=== PATIENT | female | born 1950 | race Caucasian/White ===

== ENCOUNTER 2016-10-12 15:19 | Inpatient (IN) | payer OTHER, MEDICARE ==
[~2016-10-12] VITALS: Ht 157.5 cm; Wt 97.5 kg
--- NOTE | 2016-10-12 15:34 | ED GI/GU/ABDOMINAL COMPLAINT ---
History of Present Illness General Chief Complaint: Abdominal Pain/Flank Pain Stated Complaint: ABDOMIAL PAIN Source: patient Exam Limitations: no limitations Vital Signs & Intake/Output Vital Signs & Intake/Output Vital Signs Date Time Temp Pulse Resp B/P B/P Pulse O2 O2 Flow FiO2 Mean Ox Delivery Rate 10/12 2225 97.8 112 20 141/68 95 Room Air 10/12 2004 98.1 96 18 128/62 96 Room Air 10/12 1751 98.5 94 17 138/63 95 Room Air 10/12 1647 Room Air 10/12 1527 96.8 100 18 127/58 100 Room Air ED Intake and Output 10/13 0000 10/12 1200 Intake Total 1000 Output Total Balance 1000 Intake, IV 1000 Number 4 Bowel Movements Patient 215 lb Weight Weight Reported by Patient Measurement Method Allergies Coded Allergies: Penicillins (UNKNOWN 10/12/16) clarithromycin (From BIAXIN) (HIVES 10/12/16) Reconcile Medications Aspirin (Ecotrin*) 81 MG TABLET.DR 1 TAB PO DAILY HEART/BLOOD (Reported) Lisinopril 20 MG TABLET 1 TAB PO DAILY BP (Reported) Paroxetine HCl (Paxil) 30 MG TABLET 1 TAB PO DAILY PANIC ATTACKS (Reported) Potassium Chloride 10 MEQ TAB.ER.PRT 1 TAB PO BID SUPPLEMENT (Reported) Pravastatin Sodium (Pravachol) 40 MG TABLET 1 TAB PO DAILY CHOLESTEROL ( Reported) Triage Note: PT BIBA FROM HOME AFTER EXPERIENCING A SUDDEN ONSET OF ABDOMINAL PAIN AND DIZZINESS AFTER LUNCH. C/O EXTREME DIAPHORESIS. DENIES SYNCOPAL EPISODE. UPON ARRIVAL IN ED, PT IS A&O AND IN NAD. NO DIAPHORESIS. STATES ABDOMINAL PAIN HAS ABATED SINCE SHE HAS BURPED SEVERAL TIMES. Triage Nurses Notes Reviewed? yes ? N Is pt currently ? No Onset: Just prior to arrival Duration: minute(s): (15) Timing: no prior history Quality/Severity: cramping Severity Numbers: 7 Location: generalized abdomen Radiation: no radiation Activities at Onset: AFTER EATING Prior Abdominal Problems: none Past Sexual History: Unobtainable at this time No Modifying Factors: none HPI: Patient is a 66-year-old female presenting to the emergency department chief complaint of sudden onset lower abdominal discomfort, cramping with associated lightheadedness, dizziness and diaphoresis. Positive nausea without vomiting. Symptom lastED approximately 20 minutes and none have been slowly subsiding. Patient reports that she became very sweaty. Denies any associated or chest pain. Positive shortness of breath. No palpitations. Denies taking anything to help her symptoms. Patient reports that she felt like she was given a pass out but didn't. She ate 2 hotdogs approximately 2 hours prior to onset of symptoms. Denies any chest pain. (DEEPTHI JOHNSON) Past History Travel History Traveled to [place] past 21 day No Medical History Any Pertinent Medical History? see below for history Surgical History Surgical History: non-contributory Psychosocial History What is your primary language Lithuanian Family History Hx Contributory? No (DEEPTHI JOHNSON) Review of Systems Review of Systems Constitutional: Reports: malaise, weakness. Comments Review of systems: See HPI, All other systems negative. Constitutional, no weight loss HEENT: No visual changes no sore throat no congestion Cardiovascular: No chest pain ,palpitation Skin, no jaundice no rashes Respiratory: No cough sputum or hemoptysis GI: no vomiting : No dysuria No hematuria Muscle skeletal: no back pain, no neck pain, Neurologic: No numbness no confusion Psych: No stress anxiety Immunology: No splenectomy or history of AIDS (DEEPTHI JOHNSON) Physical Exam Physical Exam General Appearance: no apparent distress, alert, awake, comfortable Gastrointestinal: normal bowel sounds, soft, tenderness Comments: Well-developed well-nourished person in no acute distress HEENT: Normal EENT exam, extraocular motion intact, small of horizontal nystagmus. Pupils equally round and reactive to light and accommodation. Nose is atraumatic. External auditory canal and Tympanic membranes clear. Pharynx normal. No swelling or edema. Neck: Supple, no lymphadenopathy, normal range of motion without pain or tenderness Back: Nontender, no CVA tenderness. Cardiovascular: Regular rate and rhythms no murmurs rubs or gallops, normal JVP Respiratory: Chest nontender. No respiratory distress.breath sounds clear to auscultation bilaterally Abdomen: Soft, mildly tender to palpation diffusely, nondistended, no appreciable organomegaly. Normal bowel sounds. No ascites RECTAL: Nontender, positive external hemorrhoids appreciated. Brown stool guaiac negative. Extremity: No edema, no calf tenderness to palpation, normal and equal pulses. Neuro: Alert oriented x3, motor sensory normal, cranial nerves II through XII grossly intact. Cerebellar testing is unremarkable. Abdomen perform finger to nose testing without difficulty. Skin: No appreciable rash on exposed skin, skin is warm and diaphoretic. Old surgical scar noted over the anterior aspect of the chest, no surrounding erythema or edema. Nontender to palpation. Psych: Mood and affect is normal, memory and judgment is normal. Core Measures ACS in differential dx? Yes Severe Sepsis Present: No Septic Shock Present: No (INES ZAMORA,DEEPTHI) Progress Differential Diagnosis: AAA, AMI, appendicitis, cholecystitis, diverticulitis, ischemic bowel Plan of Care: Orders Procedure Date/time Status Nothing by Mouth 10/13 B Active LIPID PANEL 10/13 07 Active CBC WITHOUT DIFFERENTIAL 10/13 07 Active BASIC ELECTROLYTES PLUS BUN&CR 10/13 0700 Active TROPONIN LEVEL 10/13 0200 Active EKG 10/13 0200 Active Heart Healthy Diet 10/12 D Complete CULTURE,STOOL 10/12 2340 Active Pathway - chart 10/12 2329 Active Patient Data 10/12 2329 Active Code Status 10/12 2329 Active Patient Data 10/12 2239 Active PARTIAL THROMBOPLASTIN TIME 10/12 2239 Complete OXYGEN SETUP (GEN) 10/12 2223 Active Saline Lock 10/12 2223 Active Admit to inpatient 10/12 2223 Active Vital Signs 10/12 2223 Active Activity/Ambulation 10/12 2223 Active Code Status 10/12 2223 Complete TROPONIN LEVEL 10/12 2100 Complete EKG 10/12 2100 Active Add-on Test (ER Only) 10/12 1922 Active Intake & Output 10/12 1915 Active THYROID STIMULATING HORMONE 10/12 1700 Complete TOTAL TRIODOTHYROXINE 10/12 1700 Complete THYROXINE 10/12 1700 Complete MISTAKE 10/12 1535 Active Telemetry/Setter [employer] 10/12 1535 Active TROPONIN LEVEL 10/12 1535 Complete COMPREHENSIVE METABOLIC PANEL 10/12 1535 Complete CBC WITHOUT DIFFERENTIAL 10/12 1535 Complete EKG 10/12 1535 Active Pathway - chart 10/12 UNK Active House Staff 10/12 UNK Active VTE Mechanical Prophylaxis 10/12 UNK Active CASE MANAGEMENT CONSULT 10/12 UNK Active ECHOCARDIOGRAM 10/12 UNK Active Current Medications Sig/Kelly Start time Last Medication Dose Stop Time Status Admin Pravastatin Sodium 40 MG QPM 10/13 2200 UNVr (Pravachol) Aspirin Buffered 81 MG DAILY 10/13 1000 UNVr (Ecotrin) Lisinopril 20 MG DAILY 10/13 1000 UNVr (Prinivil) Multivitamins 1 TAB DAILY 10/13 1000 CANr (Theragran Vitamins) Potassium Chloride 10 MEQ DAILY 10/13 1000 UNVr (K-Dur) Sodium Chloride 1,000 ML Q13H 10/12 2344 UNVr (Normal Saline 0.9%) Trimethobenzamide HCl 200 MG 4 TIMES/DAY PRN 10/12 2344 UNVr (Tigan) Acetaminophen 650 MG Q6P PRN 10/12 2329 UNVr (Tylenol) Paroxetine HCl 30 MG QPM 10/12 2329 UNVr (Paxil) Heparin Sodium 25,000 UNIT Q24H 10/12 2229 AC 10/12 (Porcine) 2325 (Heparin) Sodium Chloride 500 ML Laboratory Tests 10/12/165: APTT 27 10/12/165: Troponin I 0.34 *H 10/12/16 1700: Anion Gap 12, Estimated GFR > 60, BUN/Creatinine Ratio 23.8, Glucose 114 H, Calcium 9.9, Total Bilirubin 0.6, AST 26, ALT 32, Alkaline Phosphatase 119, Troponin I 0.07, Total Protein 7.5, Albumin 4.4, Globulin 3.1, Albumin/Globulin Ratio 1.4, TSH 0.573, Thyroxine (T4) 10.2, Total T3 1.71 H, CBC w Diff NO MAN DIFF REQ, RBC 4.60, MCV 91.3, MCH 30.4, RDW 13.2, MPV 8.3, Gran % 86.2 H, Lymphocytes % 7.3 L, Monocytes % 5.0, Eosinophils % 0.6, Basophils % 0.9, Absolute Granulocytes 15.1 H, Absolute Lymphocytes 1.3, Absolute Monocytes 0.9 H, Absolute Eosinophils 0.1, Absolute Basophils 0.2, PUBS MCHC 33.3 Microbiology 10/13 2339 STOOL: Stool Culture - ORD Diagnostic Imaging: Viewed by Me: Radiology Read. Discussed w/RAD: Radiology Read. Radiology Impression: XR CHEST CLINICAL INFORMATION: Shortness of breath. Concern for cardiomegaly. COMPARISON: Chest x-ray 12/14/2005 TECHNIQUE: 2 views of the chest were obtained. FINDINGS: Status post median sternotomy, status post aortic valve replacement. Heart size is normal. The trachea is displaced to the right of midline possibly due to an enlarged substernal thyroid. This is similar to the chest x-ray of 12/14/2005. No pulmonary vascular congestion. Small linear scar or subsegmental atelectasis in left midlung. Lungs are otherwise clear. No pleural effusion or pneumothorax. IMPRESSION: 1. Heart size is normal. Status post cardiac valve replacement. No pulmonary vascular congestion. 2. Trachea displaced to the right of midline likely from substernal enlarged thyroid. This can be further assessed with thyroid ultrasound. DICTATED BY: JOLYNN ALVAREZ MD DATE/TIME DICTATED:10/12/161557 ART EDUCATION PROFESSOR:YANCY DATE/TIME TRANSCRIBED:10/12/161557, PATIENT: FRANSISCO ROBLES PRESENT AGE: 66 PATIENT ACCOUNT NO: [id number] : 49 LOCATION: [facility] ORDERING PHYSICIAN: DEEPTHI ZAMORA SERVICE DATE: 10/12/16 EXAM TYPE: CAT - CT ABD & PELVIS ANGIOGRAM; CTA CHEST-AORTIC DISSECTION EXAMINATION: CT ANGIOGRAM CHEST, ABDOMEN AND PELVIS CLINICAL INFORMATION: Abdominal pain. Diaphoresis. COMPARISON: CT chest 12/16/2005. Chest x-ray 10/12/2016 TECHNIQUE: Noncontrast axial images obtained through the chest. Multiple axial images were obtained through the chest abdomen and pelvis following the administration of 120 mL of Optiray 350 intravenous contrast. Coronal and sagittal reformatted images performed at CT scanner. No 3-D imaging. DLP: 1668.95 mGy-cm. FINDINGS: VASCULAR: There is no acute abnormality of the thoracic or abdominal aorta. There is no dissection. There is no aneurysm of thoracic aorta. 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 There is diffuse atherosclerotic vascular wall calcifications of the thoracic and abdominal aorta as well as major branch vessels of aorta. There is enhancement of the major branch vessels at the thoracic aortic arch as well as in the abdomen and pelvis. The pulmonary arteries are well opacified. No evidence of central pulmonary embolism. Status post median sternotomy. Status post aortic valve replacement. CT CHEST: MEDIASTINUM: There is a large left-sided substernal thyroid displacing the trachea to the right. This contains some calcification. This is not fully imaged. This could be further assessed with nonemergent thyroid ultrasound. LUNGS: The lungs are clear. No nodule or infiltrate. Central bronchial airways open. FLUID: There is no pericardial effusion. There is no pleural effusion. AXILLA: No significant lymphadenopathy. CT SCAN ABDOMEN PELVIS: LIVER, GALLBLADDER, AND BILIARY TREE: The liver is normal in size, shape, and attenuation. No focal hepatic lesion or biliary ductal dilatation is present. Right lobe of liver measures 19 cm superior inferior. The gallbladder is unremarkable with no evidence of radiopaque gallstones, gallbladder wall thickening, or obvious pericholecystic inflammatory changes. PANCREAS: Unremarkable. SPLEEN: Unremarkable. ADRENAL GLANDS: Unremarkable. KIDNEYS AND URETERS: The kidneys are normal in size, shape, and attenuation. No hydronephrosis, hydroureter, or calculi seen. No perinephric stranding. BLADDER: Unremarkable. GASTROINTESTINAL TRACT: No acute change of bowel. No bowel obstruction. No bowel wall thickening or edema. Large volume of stool in the rectum sigmoid with scattered stool throughout the remainder of colon. The appendix is normal. Small bowel loops unremarkable. ABDOMINAL WALL: No significant hernia is appreciated. LYMPH NODES: Normal. PELVIC VISCERA: The uterus is anteverted. No adnexal abnormality. OSSEOUS STRUCTURES: Multilevel degenerative change of the spine with disc height narrowing and endplate spurs facet joint arthrosis. Vacuum disc phenomena of the lower 3 lumbar disc spaces. IMPRESSION: 1. No aneurysm or dissection of aorta. There is atherosclerotic vascular calcifications of the aorta and major branch vessels of aorta. 2. Large left-sided substernal thyroid goiter. 3. Status post median sternotomy with aortic valve replacement. 4. No acute abnormality of the abdomen or pelvis. DICTATED BY: JOLYNN ALVAREZ MD DATE/TIME DICTATED:10/12/161903 ART EDUCATION PROFESSOR :YANCY DATE/TIME TRANSCRIBED:10/12/161903 CONFIDENTIAL, DO NOT COPY WITHOUT APPROPRIATE AUTHORIZATION. <Electronically signed in Other Vendor System> SIGNED BY: JOLYNN ALVAREZ MD 10/12/161917 Initial ED EKG: SINUS 93 BPM, PROLONGED QT, R WAVE PROGRESSION Repeat EKG: unchanged Comments: On arrival patient nauseous, diaphoretic. IV fluids initiated along with Zofran. EKG shows prolonged QT interval, Zofran given prior to EEG. We will continue to monitor her on the groundwater monitoring technician. Patient feeling much improved after IV hydration. Patient reports that she has had diarrhea throughout emergency department stay. Still has mild cramping in her abdomen that has improved. No more nausea or vomiting. No more diaphoresis. 10/12/2016 8:24:[address] PM patient informed of CT and imaging results. Resting comfortably. Pending repeat EKG and troponin. 10/12/2016 10:33:[address] Salcedo, patient will be admitted under his service for elevated troponin, and STEMI. IV heparin and initiated along with by mouth aspirin. (DEEPTHI JOHNSON) Departure Departure Time of Disposition: 2218 Disposition: STILL A PATIENT Condition: Stable Clinical Impression Primary Impression: NSTEMI (non-ST elevated myocardial infarction) Referrals: JILLIAN CHANDLER APRN (PCP/Family) Departure Forms: Customer Survey General Discharge Information Admission Note Spoke With: YASMIN SALCEDO MD Documentation of Exam: Documentation of any treatments & extenuating circumstances including Concerns Regarding Discharge (functional status, medication knowledge or non-compliance, living conditions, etc.) that warrant an admission rather than observation: Patient requiring IV heparinization for elevated troponin, trending EKGs and troponins, cardiology consultation, medication management, stress tests, echocardiogram. Discharged at this time would be medically HARMFUL. (DEEPTHI JOHNSON) PA/AIRCRAFT AIR CONDITIONING MECHANIC Co-Sign Statement Statement: ED Attending supervision documentation- x I saw and evaluated the patient. I have also reviewed all the pertinent lab results and diagnostic results. I agree with the findings and the plan of care as documented in the PA's/AIRCRAFT AIR CONDITIONING MECHANIC's documentation. [] I have reviewed the ED Record and agree with the PA's/AIRCRAFT AIR CONDITIONING MECHANIC's documentation. [] Additions or exceptions (if any) to the PAs/AIRCRAFT AIR CONDITIONING MECHANIC's note and plan are summarized below: [] (MARTINA RAJAN MD) Critical Care Note Critical Care Note Critical Care Time: 30-74 min (DEEPTHI JOHNSON)
--- NOTE | 2016-10-12 16:05 | RADIOLOGY REPORT ---
EXAMINATION: XR CHEST CLINICAL INFORMATION: Shortness of breath. Concern for cardiomegaly. COMPARISON: Chest x-ray 12/14/2005 TECHNIQUE: 2 views of the chest were obtained. FINDINGS: Status post median sternotomy, status post aortic valve replacement. Heart size is normal. The trachea is displaced to the right of midline possibly due to an enlarged substernal thyroid. This is similar to the chest x-ray of 12/14/2005. No pulmonary vascular congestion. Small linear scar or subsegmental atelectasis in left midlung. Lungs are otherwise clear. No pleural effusion or pneumothorax. IMPRESSION: 1. Heart size is normal. Status post cardiac valve replacement. No pulmonary vascular congestion. 2. Trachea displaced to the right of midline likely from substernal enlarged thyroid. This can be further assessed with thyroid ultrasound.
[2016-10-12] MEDS ORDERED: ASPIRIN EC81 M1 PO (16:56)
[2016-10-12] MEDS ORDERED: POTASSIUM CHLO10 ME5 PO (16:56)
[2016-10-12] MEDS ORDERED: PAXIL30 M1 PO (16:56)
[2016-10-12] MEDS ORDERED: LISINOPRIL10 M1 PO (16:56)
[2016-10-12] MEDS ORDERED: PRAVACHOL40 M1 PO (16:57)
[2016-10-12] MEDS ORDERED: LISINOPRIL20 M1 PO (16:59)
[2016-10-12 17:19] LABS: ABSOLUTE BASOPHIL COUNT 0.2 /CUMM (0.0-0.2); ABSOLUTE EOSINOPHIL COUNT 0.1 /CUMM (0.0-0.7); ABSOLUTE GRANULOCYTE CT 15.1 /CUMM (1.4-6.5); ABSOLUTE LYMPH COUNT 1.3 /CUMM (1.2-3.4); ABSOLUTE MONOCYTE COUNT 0.9 /CUMM (0.10-0.60); BASOPHIL % 0.9 % (0.0-2.0); EOSINOPHIL % 0.6 % (0-5); MEAN CORPUSCULAR HGB 30.4 PG (27.0-31.0); MEAN CORPUSCULAR HGB CONC 33.3 G/DL (33.0-37.0); MEAN CORPUSCULAR VOLUME 91.3 FL (81.0-99.0); MEAN PLATELET VOLUME 8.3 FL (7.4-10.4); PLATELET COUNT 262 /CUMM (130-400); RBC DISTRIBUTION WIDTH 13.2 % (11.5-14.5); WHITE BLOOD CELL COUNT 17.6 /CUMM (4.8-10.8)
[2016-10-12 17:21] LABS: GRANULOCYTE % 86.2 % (42.2-75.2)
--- NOTE | 2016-10-12 19:18 | CT SCAN REPORT ---
EXAMINATION: CT ANGIOGRAM CHEST, ABDOMEN AND PELVIS CLINICAL INFORMATION: Abdominal pain. Diaphoresis. COMPARISON: CT chest 12/16/2005. Chest x-ray 10/12/2016 TECHNIQUE: Noncontrast axial images obtained through the chest. Multiple axial images were obtained through the chest abdomen and pelvis following the administration of 120 mL of Optiray 350 intravenous contrast. Coronal and sagittal reformatted images performed at CT scanner. No 3-D imaging. DLP: 1668.95 mGy-cm. FINDINGS: VASCULAR: There is no acute abnormality of the thoracic or abdominal aorta. There is no dissection. There is no aneurysm of thoracic aorta. 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 There is diffuse atherosclerotic vascular wall calcifications of the thoracic and abdominal aorta as well as major branch vessels of aorta. There is enhancement of the major branch vessels at the thoracic aortic arch as well as in the abdomen and pelvis. The pulmonary arteries are well opacified. No evidence of central pulmonary embolism. Status post median sternotomy. Status post aortic valve replacement. CT CHEST: MEDIASTINUM: There is a large left-sided substernal thyroid displacing the trachea to the right. This contains some calcification. This is not fully imaged. This could be further assessed with nonemergent thyroid ultrasound. LUNGS: The lungs are clear. No nodule or infiltrate. Central bronchial airways open. FLUID: There is no pericardial effusion. There is no pleural effusion. AXILLA: No significant lymphadenopathy. CT SCAN ABDOMEN PELVIS: LIVER, GALLBLADDER, AND BILIARY TREE: The liver is normal in size, shape, and attenuation. No focal hepatic lesion or biliary ductal dilatation is present. Right lobe of liver measures 19 cm superior inferior. The gallbladder is unremarkable with no evidence of radiopaque gallstones, gallbladder wall thickening, or obvious pericholecystic inflammatory changes. PANCREAS: Unremarkable. SPLEEN: Unremarkable. ADRENAL GLANDS: Unremarkable. KIDNEYS AND URETERS: The kidneys are normal in size, shape, and attenuation. No hydronephrosis, hydroureter, or calculi seen. No perinephric stranding. BLADDER: Unremarkable. GASTROINTESTINAL TRACT: No acute change of bowel. No bowel obstruction. No bowel wall thickening or edema. Large volume of stool in the rectum sigmoid with scattered stool throughout the remainder of colon. The appendix is normal. Small bowel loops unremarkable. ABDOMINAL WALL: No significant hernia is appreciated. LYMPH NODES: Normal. PELVIC VISCERA: The uterus is anteverted. No adnexal abnormality. OSSEOUS STRUCTURES: Multilevel degenerative change of the spine with disc height narrowing and endplate spurs facet joint arthrosis. Vacuum disc phenomena of the lower 3 lumbar disc spaces. IMPRESSION: 1. No aneurysm or dissection of aorta. There is atherosclerotic vascular calcifications of the aorta and major branch vessels of aorta. 2. Large left-sided substernal thyroid goiter. 3. Status post median sternotomy with aortic valve replacement. 4. No acute abnormality of the abdomen or pelvis.
[2016-10-12 23:11] LABS: PTT 27 SEC (25-37)
--- NOTE | 2016-10-12 23:49 | History & Physical ---
[facility] 10/12/16 2333: General Information and HPI MD Statement: I have seen and personally examined FRANSISCO ROBLES and documented this H&P. The patient is a 66 year old F who presented with a patient stated chief complaint of , nausea,abdominal cramps associated with diarrhea. []. History of Present Illness: 66 YO F ex smoker( 1 pack/d quit 1 yr back) with PMH of HTN, hyperlipidemia, anxiety, status post valve replacement with bovine valve( October 2015 in [place] ) and benign thyroid tumor presented with CC of nausea, abdominal cramps associated with diarrhea, sweating and light headedness. According to the patient she was all right untill she ate hot dogs in her lunch at home and after that she had crampy pain, 3/10, in her lower belly, non radiating, no aggravating factor but relieved a bit after passing watery stool, non bloody, non foul smelling and after every two hours. She also reported that along with diarrhea she is feling nauseaous, sweat a lot and was feeling light headed. She denied typical chest pain, palpitation, dyspnea, fever, vomiting, tick bite, chills, ill contact, constipation, recent travel and headache. In ED she received zofran and IV N/S. They sent all the labs along with troponin. The first set of troponin was negative but second one was 0.34 with no EKG changes. C xray:1. Heart size is normal. Status post cardiac valve replacement. No pulmonary vascular congestion. 2. Trachea displaced to the right of midline likely from substernal enlarged thyroid. This can be further assessed with thyroid ultrasound. CTA chest:No aneurysm or dissection of aorta. There is atherosclerotic vascular calcifications of the aorta and major branch vessels of aorta. 2. Large left-sided substernal thyroid goiter. CTA abd and pelvis:No acute abnormality of the abdomen or pelvis. On admission vital signs were stable. Examination: HEENT Atraumatic, PERRLA, EOMI Cardiovascular Regular Rate, Lungs Clear to Auscultation, Normal Air Movement Abdomen Normal Bowel Sounds, Soft, No Tenderness, No Hepatospenomegaly, No Masses Neurological Normal Gait, Normal Speech, Strength at 5/5 X4 Ext, Sensation Intact. Pedal edema grade 1 EKG tachcardia, no ST segment changes ASSESSMENT: ABDOMINAL PAIN AND DIARRHEA D/D: viral gastroenteritis, bacterial diarrhea, giardiasis, traveler's diarrhea, IBS, Stool culture IV hydration zofran check cbc BEP NSTEMI elevated troponin level Troponin and EKG X 3 continue aspirin 81mg IV heparin NPO Continue lisinopril, statin Echo Lipid panel Allergies/Medications Allergies: Coded Allergies: Penicillins (UNKNOWN 10/12/16) clarithromycin (From BIAXIN) (HIVES 10/12/16) Home Med list Aspirin (Ecotrin*) 81 MG TABLET.DR 1 TAB PO DAILY HEART/BLOOD (Reported) Lisinopril 20 MG TABLET 1 TAB PO DAILY BP (Reported) Paroxetine HCl (Paxil) 30 MG TABLET 1 TAB PO DAILY PANIC ATTACKS (Reported) Potassium Chloride 10 MEQ TAB.ER.PRT 1 TAB PO BID SUPPLEMENT (Reported) Pravastatin Sodium (Pravachol) 40 MG TABLET 1 TAB PO DAILY CHOLESTEROL ( Reported) Past History Travel History Traveled to [place] past 21 day No Medical History Cardiovascular: hypertension, hyperlipidemia, CARDIAC CATH Psychiatric: anxiety Surgical History Surgical History: non-contributory Past Family/Social History Sexual History Past Sexual History Unobtainable at this time Review of Systems Review of Systems Constitutional: Reports: no symptoms. EENTM: Reports: no symptoms. Cardiovascular: Reports: peripheral edema. Respiratory: Reports: no symptoms. GI: Reports: diarrhea, nausea. Genitourinary: Reports: no symptoms. Musculoskeletal: Reports: no symptoms. Skin: Reports: no symptoms. Neurological/Psychological: Reports: no symptoms. Hematologic/Endocrine: Reports: no symptoms. Exam & Diagnostic Data Last 24 Hrs of Vital Signs/I&O Vital Signs Date Time Temp Pulse Resp B/P B/P Pulse O2 O2 Flow FiO2 Mean Ox Delivery Rate 10/125 97.8 112 20 141/68 95 Room Air 10/12 2004 98.1 96 18 128/62 96 Room Air 10/12 1751 98.5 94 17 138/63 95 Room Air 10/12 1647 Room Air 10/12 1527 96.8 100 18 127/58 100 Room Air Intake & Output 10/12 1600 10/12 0800 10/12 0000 Intake Total Output Total Balance Patient 215 lb Weight Weight Reported by Patient Measurement Method Physical Exam General Appearance Alert, Oriented X3, Cooperative, No Acute Distress Skin No Rashes Skin Temp/Moisture Exam: Warm/Dry HEENT Atraumatic, PERRLA, EOMI Neck Supple Cardiovascular Regular Rate Lungs Clear to Auscultation Abdomen Normal Bowel Sounds Neurological Normal Speech Vascular Normal Pulses Assessment/Plan Assessment: ASSESSMENT: ABDOMINAL PAIN AND DIARRHEA D/D: viral gastroenteritis, bacterial diarrhea, giardiasis, traveler's diarrhea, IBS, Stool culture IV hydration zofran check cbc BEP NSTEMI elevated troponin level Troponin and EKG X 3 continue aspirin 81mg IV heparin NPO Continue lisinopril, statin Echo Lipid panel DVT prophylaxis full code Core Measures/Miscellaneous Acute Coronary Syndrome ACS Diagnosis: Yes Last Known EF % 60 ASA W/I 24hr of admit Yes Beta-Harmony W/I 24hrs No No Beta-Harmony d/t PER CARDIOLOGY LDL assessed W/I 24 hrs Yes Currently on Statin Yes Cerebrovascular Accident CVA/TIA Diagnosis: No Congestive Heart Failure CHF Diagnosis: No VTE (View Protocol) VTE Risk Factors: Age > 40, Obesity [facility] prophylaxis d/t: No contraindications No VTE Pharm Prophylaxis d/t: No contraindications VTE Diagnosis: No VTE Type: NONE VTE Confirmed by (Test): NONE Sepsis (View Protocol) Severe Sepsis Present: No Septic Shock Septic Shock Present: No Miscellaneous Documentation Attending Case Discussed With: DENISSE PERSAUD,REGLA DAVIDSON 10/13/16 0307: Assessment/Plan As Ranked By This Provider Problem List: 1. Elevated troponin Core Measures/Miscellaneous Miscellaneous Documentation Primary Care Physician: JILLIAN CHANDLER APRN Patient sees these Specialists dr chacon Level of Patient Care: Telemetry Resident Review Statement Resident Statement: examined this patient, discussed with property management intern, agreed with property management intern, discussed with family, reviewed images, amended to note Other Findings: 66-year-old lady with past medical history of status post valve replacement with bovine valve in 2016 at [place], hyperlipidemia?,hypokalemia,HTN came to the hospital with chief complaint of sweating, lower abdominal pain, nausea and diarrhea. Patient reported that she had sweating and feeling nauseous and had episode of diarrhea after lunch and she felt weak with mild dizziness and came to the hospital for that. Patient denies to typical crushing chest pain however she had lower abdominal pain and sweating and feeling weak which got better after couple of hours in the hospital. Patient denies any shortness of breath, headache, constipation, fevers, chills, recent sick contact. [place] in ED she received Zofran and normal saline and first troponin was negative however and the second set of troponin short value of 0.34, no EKG changes, CTA chest, abdomen, pelvis, chest x-ray did not show any aortic dissection however did show large left-sided substernal thyroid goiter which has been present for a long time and the patient is aware of that. -Vital signs on admission were stable with mild tachcardia no fever Alert and oriented 3 HEENT Atraumatic, PERRLA, EOMI Cardiovascular Regular Rate, Normal S1, Normal S2 Lungs Clear to Auscultation, Normal Air Movement Abdomen Normal Bowel Sounds, Soft, No Tenderness, No Hepatospenomegaly, No Masses Neurological Normal Gait, Normal Speech, Strength at 5/5 X4 Ext, Sensation Intact Extremities +1 edema of the left ankle up to mid ruiz EKG showed mild tachycardia 100, no acute ST-T changes, poor R progression, QTC 500 labs were significant for troponin of 0.34, WBC 17.6, K 3.1, NA 136 Assessment and plan #Elevated troponins (possible) NSTEMI -admit to telemetry for cardiac monitoring -Troponin and EKG 3 -Patient got aspirin 325 we will continue aspirin 81 mg -IV heparin for now -NPO for now -Continue lisinopril, statin -Further evaluation for catheterization tomorrow -Echocardiogram -Tylenol for pain -Check lipid panel in the morning #Nausea and diarrhea/ viral Gastroentritis? with elevated WBC -stool culture -mild IV hydration with NS -Tigan for nausea prn (high Qtc) -Check CBC in the morning #low K Repleted orally K and checks BEP in the morning DVT prophylaxis he is IV heparin and mechanical, full code, Tylenol for pain, NPO DENISSE PERSAUD,YASMIN 10/13/16 1824: Attending MD Review Statement Attending Statement Attending MD Statement: examined this patient, discuss w/resident/PA/[employer] HARVESTER, agreed w/resident/PA/[employer]VESTER, discussed with family, reviewed EMR data (avail), discussed with nursing, reviewed images, amended to note Attending Assessment/Plan: The patient is a 66-year-old female with history of hypertension, hypertrophic cardiomyopathy, bioprosthetic aortic valve replacement who presents with complaint of diarrhea, nausea, and abdominal cramps. The symptoms began after eating a hotdog and coleslaw at home. She says currently began having abdominal cramps which were a 3 out of 10 in severity in the lower abdomen. She developed watery diarrhea which lasted throughout the day. She noted profuse sweating. She noted lightheadedness. No chest pain. No shortness of breath. No palpitations. No syncope. Review of systems: No fever. No chills. No rash. No tremor. All other systems were reviewed, and were noted to be negative. Physical examination: Gen: The patient is in no acute distress HEENT: Normal nose, ears, and oropharynx. Pupils equal bilaterally. Conjunctiva normal. Neck: Supple with no JVD, no masses, and no thyromegaly Lungs: Clear to auscultation with normal respiratory effort Heart: RRR, S1, S2, no murmurs. No peripheral edema, 2+ pulses in the lower extremities bilaterally Abdomen: Soft, nontender, no masses. No hepatomegaly. No splenomegaly Extremities: No clubbing or cyanosis. Normal muscle strength in the upper and lower extremities Skin: Normal skin turgor with no skin ulcers or lesions noted. Neuro: Cranial nerves intact. Sensation intact Psych: Alert and oriented 3 with appropriate affect EKG tracing is independently reviewed, and reveals normal sinus rhythm at 93 with borderline poor progression Chest x-ray: 1. Heart size is normal. Status post cardiac valve replacement. No pulmonary vascular congestion. 2. Trachea displaced to the right of midline likely from substernal enlarged thyroid. This can be further assessed with thyroid ultrasound. CTA Chest/abd/pelvis: 1. No aneurysm or dissection of aorta. There is atherosclerotic vascular calcifications of the aorta and major branch vessels of aorta. 2. Large left-sided substernal thyroid goiter. 3. Status post median sternotomy with aortic valve replacement. 4. No acute abnormality of the abdomen or pelvis. Assessment: 1. Gastroenteritis 2. History of hypertrophic cardiomyopathy 3. Hypokalemia 4. Mild troponin elevation secondary to demand ischemia Plan: * IV fluid * Potassium * Monitor overnight * Echocardiogram * Repeat EKG in the morning * Likely ready for discharge tomorrow
[2016-10-13 01:30] VITALS: BP 114/72
[2016-10-13 07:18] VITALS: BP 118/72
[2016-10-13 08:29] LABS: PTT 47 SEC (25-37)
[2016-10-13 08:38] LABS: ABSOLUTE BASOPHIL COUNT 0.1 /CUMM (0.0-0.2); ABSOLUTE EOSINOPHIL COUNT 0.2 /CUMM (0.0-0.7); ABSOLUTE GRANULOCYTE CT 7.8 /CUMM (1.4-6.5); ABSOLUTE LYMPH COUNT 2.2 /CUMM (1.2-3.4); ABSOLUTE MONOCYTE COUNT 0.8 /CUMM (0.10-0.60); BASOPHIL % 0.5 % (0.0-2.0); EOSINOPHIL % 1.5 % (0-5); GRANULOCYTE % 70.5 % (42.2-75.2); MEAN CORPUSCULAR HGB 30.8 PG (27.0-31.0); MEAN CORPUSCULAR HGB CONC 33.8 G/DL (33.0-37.0); MEAN CORPUSCULAR VOLUME 90.9 FL (81.0-99.0); MEAN PLATELET VOLUME 8.6 FL (7.4-10.4); PLATELET COUNT 209 /CUMM (130-400); RBC DISTRIBUTION WIDTH 13.1 % (11.5-14.5); RED BLOOD CELL CT 3.99 /CUMM (4.20-5.40)
[2016-10-13 09:04] LABS: HEMATOCRIT 36.3 % (37-47)
--- NOTE | 2016-10-13 10:16 | PN- Housestaff ---
Subjective Follow-up For: -Nausea and vomiting Abdominal pain Elevated troponin Complaints: no complaints Tele-Events Since Last Visit: Sinus tachycardia, [id number] Subjective: I personally examined the patient at bedside she was sitting comfortably in a chair and reports having no complaints Review of Systems Constitutional: Denies: no symptoms, see HPI. Cardiovascular: Denies: no symptoms. Respiratory: Denies: no symptoms. Gastrointestinal: Reports: bloating, nausea. Genitourinary: Denies: no symptoms. Skin: Denies: no symptoms. Objective Last 24 Hrs of Vital Signs/I&O Vital Signs Date Time Temp Pulse Resp B/P B/P Pulse O2 O2 Flow FiO2 Mean Ox Delivery Rate 10/13 0718 98.9 102 20 118/72 94 Room Air 10/13 0130 98.4 101 20 114/72 96 Room Air 10/13 0040 98.0 92 16 119/56 07 0000 98.0 92 16 119/56 95 Room Air 10/12 2225 97.8 112 20 141/68 95 Room Air 10/12 2004 98.1 96 18 128/62 96 Room Air 10/12 1751 98.5 94 17 138/63 95 Room Air 10/12 1647 Room Air 10/12 1527 96.8 100 18 127/58 100 Room Air Intake & Output 10/13 1600 10/13 0800 10/13 0000 Intake Total 960 1000 Output Total 600 Balance 360 1000 Intake, IV 760 1000 Intake, Oral 200 Number 4 Bowel Movements Output, Urine 600 Patient 215 lb 215 lb Weight Weight Reported by Patient Measurement Method Physical Exam General Appearance: Alert, Oriented X3, Cooperative, No Acute Distress Skin: No Rashes, No Breakdown, No Significant Lesion Skin Temp/Moisture Exam: Warm/Dry Sepsis Skin Exam (color): Normal for Ethnicity HEENT: Atraumatic, PERRLA, EOMI, Mucous Membr. moist/pink Neck: Supple, No JVD Cardiovascular: Regular Rate, Normal S1, Normal S2, No Murmurs Lungs: Clear to Auscultation, Normal Air Movement Abdomen: Normal Bowel Sounds, Soft, No Tenderness Neurological: Normal Gait, Normal Speech, Strength at 5/5 X4 Ext, Normal Tone, Cranial Nerves 3-12 NL Extremities: 2+ BILATERAL PITTING EDEMA Assessment/Plan Assessment: 66-year-old female was PMH of aortic stenosis S\P valve replacement with bovine valve in 2016 (AT [place]) HLD, HTN, hypokalemia presented to the ED complaining of sweating, lower abdominal pain, nausea and diarrhea.The patient also reported sweating, nausea and 1 episode of diarrhea after which she felt dizzy and came to the ED.She denies chest pain, Shortness of breath, constipation, fever, chills OR recent sick contacts On admission she received Zofran and an abscess, her first troponin was negative however the second one was 0.34 was no EKG changes Vital signs on admission were stable only showed mild tachycardia was no fever Labs on admission: WBC 17.6, hemoglobin 14, sodium 136, potassium is 3.1, chloride 99, BUN 19, creatinine 0.8, glucose 114, troponin (0.07, 0.34, 0.31) TSH 0.573, T4 10 0.2, total T3 1 0.71 -imaging CT abdomen:1. No aneurysm or dissection of aorta. There is atherosclerotic vascular calcifications of the aorta and major branch vessels of aorta. 2. Large left-sided substernal thyroid goiter. 3. Status post median sternotomy with aortic valve replacement. 4. No acute abnormality of the abdomen or pelvis. # Elevated troponin (possible NSTEMI) -Continue telemetry for cardiac monitoring Troponins and EKG were normal which R/O ACS Aspirin, lisinopril, statin and metoprolol. Echocardiogram was done today , report pending. Check lipid panel Cardiology consult appreciated # Abdominal pain and diarrhea Possibly due to gastroenteritis due to elevated WBC on admission WBC improved today Follow up on stool culture Tigan for nausea when necessary Mild IV hydration with normal saline I's and O's and daily weights #Hyporkalemia Likely due to diarrhea Repeat his oral potassium Monitor BEP Full code DVT prophylaxis: IV heparin and mechanical Heart healthy diet Problem List: 1. NSTEMI (non-ST elevated myocardial infarction) 2. Hypokalemia 3. Diarrhea 4. Elevated troponin 5. Nausea 6. Abdominal pain Pain Ratin Pain Location: N/A Pain Goal: Remain pain free Pain Plan: Tylenol Tomorrow's Labs & Rationales: CBC BEP DVT/Prophylaxis: mechanical, pharmacological
--- NOTE | 2016-10-13 11:50 | Patient Discharge Instructions ---
Discharge Instructions General Discharge Information You were seen/treated for: 1-Nausea, vomiting, abdominal pain. 2-elevated troponin 3-hypokalemia Special Instructions: 1. please f/u with your PCP within 1 week of discharge. 2. please f/u with your business services analyst within 1 week of discharge. Diet Continue normal diet: Yes Recommended Diet: Heart Healthy Activity Full Activity/No Limits: Yes Acute Coronary Syndrome Inclusion Criteria At DC or during hospital stay patient has or had the following: ACS DIAGNOSIS No Discharge Core Measures Meds if any: Prescribed or Continued at Discharge Meds if any: NOT Prescribed or Continued at Discharge Congestive Heart Failure Inclusion Criteria At DC or during hospital stay patient has or had the following: CHF DIAGNOSIS No Discharge Core Measures Meds if any: Prescribed or Continued at Discharge Meds if any: NOT Prescribed or Continued at Discharge Cerebrovascular accident Inclusion Criteria At DC or during hospital stay patient has or had the following: CVA/TIA Diagnosis No Discharge Core Measures Meds if any: Prescribed or Continued at Discharge Meds if any: NOT Prescribed or Continued at Discharge Venous thromboembolism Inclusion Criteria VTE Diagnosis No VTE Type NONE VTE Confirmed by (Test) NONE Discharge Core Measures - Per Current guidelines, there needs to be overlap - treatment for the first 5 days of Warfarin therapy. - If discharged on Warfarin prior to 5 days of - overlap therapy, the patient will need to be - assessed for post discharge needs including - *Post discharge parental anticoagulation - *Warfarin and/or parental anticoagulation education - *Follow up date to check INR post discharge At least 5 days overlap therapy as Inpatient No Meds if any: Prescribed or Continued at Discharge Note: Overlap Therapy is Warfarin and Anticoagulant Meds if any: NOT Prescribed or Continued at Discharge
[2016-10-13 15:04] VITALS: BP 108/60
--- NOTE | 2016-10-13 16:37 | PN- Student ---
AMIRAHCLAUDINE MASTERSON 10/13/16 1548: Subjective Subjective: History and Physical: HPI: Billie Jones is a 66 year old female, with a PMH of aortic stenosis with valve replacement, HTN, partial thyroidectomy and panic disorder, who presented to the ER yesterday due to a sudden onset of lower abdominal pain, diarrhea and diaphoresis. Patient reports eating a hot dog and suddenly "felt ill." The patient felt nauseous and was not sure if she was going to vomit of have a bowel movement. Patient rated her abdominal pain a 4/10 and was non-radiating and did not progress. She also reports multiple watery bowel movements. Patient denies any blood or mucus in these bowel movements. Patient also denied headache, chest pain, shortness of breath, LOC, palpitations. She also reports that this spell felt much different that the panic attacks that she has experienced in the past. PMH: Aortic Stenosis Panic disorder: Managed on Paxil HTN: Managed on lisinopril. 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 Patient follows regularly with her uptwist spinner, but not as consistently with a PCP. Family History: Father: due to myocardial infarction Mother: , Had been diagnosed with potential PEs. Patient describes them as "blood clots in lungs." Brother: IBS 2 Sons: Alive and well Social: 50 pack year history. Patient quit 1 day before Aortic valve replacement. Social alcohol use on holidays. Patient reports 2 drinks during these events. Other recreational drug use: Denies of 4 years. Lives home alone, but has good support system in neighborhood. Current review of Systems: General: Hot/Cold intolerance: Denies Fatigue: Denies Dizziness: Denies HEENT: Headache: Denies Negative vision or hearing changes. No problems chewing or swallowing. Cardiovascular: Patient denies chest pain. Reports some left leg swelling at the end of day occasionally. Respiratory: Patient denies shortness of breath and any other respiratory issues. Abdominal: Patient denies stomach pain. Reports normal BMs. Urinary: No problems urinating. Extremities: Patient reports no pain or discomfort in joints. Skin: Patient reports no new bruises or lesions. Neurological/Cognitive: Patient denies depression and confusion. Current Medications Sig/Kelly Start time Last Medication Dose Route Stop Time Status Admin Acetaminophen 650 MG Q6P PRN 10/12 2330 AC PO Aspirin 0 .STK-MED ONE 10/12 2317 DC PO Aspirin 325 MG ONCE ONE 10/12 2215 DC 10/12 PO 10/12 2216 2326 Aspirin Buffered 81 MG DAILY 10/13 1000 AC 10/13 PO 1239 Heparin Sodium 0 .STK-MED ONE 10/12 2317 DC (Porcine) .ROUTE Heparin Sodium 5,000 UNIT ONCE ONE 10/12 2230 DC 10/12 (Porcine) IV 10/12 223 2326 Heparin Sodium 25,000 UNIT Q24H 10/12 2230 DC 10/12 (Porcine) IV 2326 Sodium Chloride 500 ML Lisinopril 20 MG DAILY 10/13 1000 DC PO Lisinopril 20 MG QPM 10/13 0030 AC 10/13 PO 0040 Multivitamins 1 TAB DAILY 10/13 1000 CAN PO Paroxetine HCl 30 MG QPM 10/13 0030 AC 10/13 PO 0040 Potassium Chloride 10 MEQ DAILY 10/13 1000 DC PO Potassium Chloride 0 .STK-MED ONE 10/13 0035 DC PO Potassium Chloride 10 MEQ QPM 10/13 0030 AC 10/13 PO 0036 Potassium Chloride 0 .STK-MED ONE 10/12 2014 DC PO Potassium Chloride 40 MEQ ONCE ONE 10/12 1930 DC 10/12 PO 10/12 1931 2013 Pravastatin Sodium 40 MG QPM 10/13 2200 DC PO Pravastatin Sodium 40 MG QPM 10/13 0030 AC 10/13 PO 0040 Sodium Chloride 1,000 ML Q13H 10/12 2345 DC 10/13 IV 0244 Sodium Chloride 1,000 ML BOLUS ONE 10/12 1545 DC 10/12 IV 10/12 1744 1644 Trimethobenzamide HCl 200 MG 4 TIMES/DAY PRN 10/12 2345 AC IM Objective Objective: Vital Signs Date Time Temp Pulse Resp B/P B/P Pulse O2 O2 Flow FiO2 Mean Ox Delivery Rate 10/13 1504 99.4 93 20 108/60 96 Room Air 10/13 0718 98.9 102 20 118/72 94 Room Air 10/13 0130 98.4 101 20 114/72 96 Room Air 10/13 0040 98.0 92 16 119/56 10/13 0000 98.0 92 16 119/56 95 Room Air 10/12 2225 97.8 112 20 141/68 95 Room Air 07/20 2004 98.1 96 18 128/62 96 Room Air 10/12 1751 98.5 94 17 138/63 95 Room Air General: Patient is sitting up in bed, smiling and watching television. Head: Normocephalic and atraumatic Eyes: PERRL. All visual khoury are intact. EOMI. Nose: No pain upon palpation. Mouth: Moist mucus membranes. Neck: A moderately sized mass is palpable on patient's right side of neck. Consistent with scar tissue patient reports as it is moderately hard and mobile. Cardiovascular: S1 and s2 heard. No murmurs, rubs, gallops heard. No thrills palpated. Patient slightly tachycardic, but is of normal rhythm. Respiratory: All lung fieds clear to auscultation. Abdomen: Soft and nontender to palpation. Normal bowel sounds heard. No CVA tenderness. Extremities: Full ROM of lower extremity with 5/5 strength. No edema observed. Lower extremity nontender and no crepitus present. Pedal pulses felt and are +1. Spine/neuro: Reflexes +2. Toes curling downwards. No pain upon palpation of the spine. Skin: Warm, dry. Patient has a fair complexion. No apparent lesions or erythema. Laboratory Tests 10/13 10/13 10/12 0631 0200 2255 Chemistry Sodium (137 - 145 mmol/L) 138 Potassium (3.5 - 5.1 mmol/L) 3.0 L Chloride (98 - 107 mmol/L) 101 Carbon Dioxide (22 - 30 mmol/L) 28 Anion Gap (5 - 16) 9 BUN (7 - 17 mg/dL) 17 Creatinine (0.5 - 1.0 mg/dL) 0.8 Estimated GFR (>60 ml/min) > 60 BUN/Creatinine Ratio (7 - 25 %) 21.3 Troponin I (< 0.11 ng/ml) 0.31 *H Triglycerides (<150 mg/dL) 114 Cholesterol (<200 MG/DL) 120 LDL Cholesterol, Calc (65 - 129 mg/dL) 55 L HDL Cholesterol (40 - 60 mg/dL) 43 Cholesterol/HDL Ratio (0.00 - 4.23 %) 3 Coagulation APTT (25 - 37 SEC) 47 H 27 Hematology CBC w Diff NO MAN DIFF REQ WBC (4.8 - 10.8 /CUMM) 11.0 H RBC (4.20 - 5.40 /CUMM) 3.99 L Hgb (12.0 - 16.0 G/DL) 12.3 Hct (37 - 47 %) 36.3 L MCV (81.0 - 99.0 FL) 90.9 MCH (27.0 - 31.0 PG) 30.8 RDW (11.5 - 14.5 %) 13.1 Plt Count (130 - 400 /CUMM) 209 MPV (7.4 - 10.4 FL) 8.6 Gran % (42.2 - 75.2 %) 70.5 Lymphocytes % (20.5 - 51.1 %) 20.0 L Monocytes % (1.7 - 9.3 %) 7.5 Eosinophils % (0 - 5 %) 1.5 Basophils % (0.0 - 2.0 %) 0.5 Absolute Granulocytes (1.4 - 6.5 /CUMM) 7.8 H Absolute Lymphocytes (1.2 - 3.4 /CUMM) 2.2 Absolute Monocytes (0.10 - 0.60 /CUMM) 0.8 H Absolute Eosinophils (0.0 - 0.7 /CUMM) 0.2 Absolute Basophils (0.0 - 0.2 /CUMM) 0.1 PUBS MCHC (33.0 - 37.0 G/DL) 33.8 10/12 10/12 2115 1700 Chemistry Sodium (137 - 145 mmol/L) 136 L Potassium (3.5 - 5.1 mmol/L) 3.1 L Chloride (98 - 107 mmol/L) 99 Carbon Dioxide (22 - 30 mmol/L) 26 Anion Gap (5 - 16) 12 BUN (7 - 17 mg/dL) 19 H Creatinine (0.5 - 1.0 mg/dL) 0.8 Estimated GFR (>60 ml/min) > 60 BUN/Creatinine Ratio (7 - 25 %) 23.8 Glucose (65 - 99 mg/dL) 114 H Calcium (8.4 - 10.2 mg/dL) 9.9 Total Bilirubin (0.2 - 1.3 mg/dL) 0.6 AST (14 - 36 U/L) 26 ALT (9 - 52 U/L) 32 Alkaline Phosphatase (<127 U/L) 119 Troponin I (< 0.11 ng/ml) 0.34 *H 0.07 Total Protein (6.3 - 8.2 g/dL) 7.5 Albumin (3.5 - 5.0 g/dL) 4.4 Globulin (1.9 - 4.2 gm/dL) 3.1 Albumin/Globulin Ratio (1.1 - 2.2 %) 1.4 TSH (0.270 - 4.200 uIU/mL) 0.573 Thyroxine (T4) (4.5 - 10.9 ug/dL) 10.2 Total T3 (0.97 - 1.69 ng/mL) 1.71 H Hematology CBC w Diff NO MAN DIFF REQ WBC (4.8 - 10.8 /CUMM) 17.6 H RBC (4.20 - 5.40 /CUMM) 4.60 Hgb (12.0 - 16.0 G/DL) 14.0 Hct (37 - 47 %) 42.0 MCV (81.0 - 99.0 FL) 91.3 MCH (27.0 - 31.0 PG) 30.4 RDW (11.5 - 14.5 %) 13.2 Plt Count (130 - 400 /CUMM) 262 MPV (7.4 - 10.4 FL) 8.3 Gran % (42.2 - 75.2 %) 86.2 H Lymphocytes % (20.5 - 51.1 %) 7.3 L Monocytes % (1.7 - 9.3 %) 5.0 Eosinophils % (0 - 5 %) 0.6 Basophils % (0.0 - 2.0 %) 0.9 Absolute Granulocytes (1.4 - 6.5 /CUMM) 15.1 H Absolute Lymphocytes (1.2 - 3.4 /CUMM) 1.3 Absolute Monocytes (0.10 - 0.60 /CUMM) 0.9 H Absolute Eosinophils (0.0 - 0.7 /CUMM) 0.1 Absolute Basophils (0.0 - 0.2 /CUMM) 0.2 PUBS MCHC (33.0 - 37.0 G/DL) 33.3 CTA chest: IMPRESSION: 1. No aneurysm or dissection of aorta. There is atherosclerotic vascular calcifications of the aorta and major branch vessels of aorta. 2. Large left-sided substernal thyroid goiter. 3. Status post median sternotomy with aortic valve replacement. 4. No acute abnormality of the abdomen or pelvis. Assessment/Plan Assessment: #Potential NSTEMI (Elevated troponins) Continue to watch troponin trend. May be due to demand ischemia. Obtain echocardiogram. Continue Lisinopril, metoprolol and statin. #Gastroenteritis Elevated WBC Patient experienced symptoms soon after eating high fat food. Lower abdominal pain and timeline is not consistent with gallbladder disease. Educate patient on diet. Hydration and I and O management. #hypokalemia Due to diarrhea. Replenish and monitor electrolytes. #Panic and Anxiety Follow up with patient about feelings of stress and altered presentations about panic attacks. MELI FRY MD 10/17/16 2208: Attending MD Review Statement Attending Sign Off Other Findings: Seen by another MD.
--- NOTE | 2016-10-13 17:54 | Discharge Summary ---
Visit Information Visit Dates Admission Date: 10/12/16 Discharge Date: 10/14/16 Hospital Course Course Attending Physician: YASMIN SALCEDO MD Primary Care Physician: RAMESH JIMENEZJILLIAN [facility] Course: 66-year-old female with PMH of aortic stenosis S\P valve replacement with bovine valve in 2016 (AT [facility]) HLD, HTN, hypokalemia presented to the ED complaining of sweating, lower abdominal pain, nausea and diarrhea.The patient also reported sweating, nausea and 1 episode of diarrhea after which she felt dizzy and came to the ED.She denied chest pain, Shortness of breath, constipation, fever, chills OR recent sick contacts.On admission she received Zofran,Her normal troponin and EKG rulled out ACS Vital signs on admission were stable only showed mild tachycardia was no fever Labs on admission: WBC 17.6, hemoglobin 14, sodium 136, potassium is 3.1, chloride 99, BUN 19, creatinine 0.8, glucose 114, troponin (0.07, 0.34, 0.31) TSH 0.573, T4 10 0.2, total T3 1 0.71 -pertinent imaging on admission: CT abdomen:1. No aneurysm or dissection of aorta. There is atherosclerotic vascular calcifications of the aorta and major branch vessels of aorta. 2. Large left-sided substernal thyroid goiter. 3. Status post median sternotomy with aortic valve replacement. 4. No acute abnormality of the abdomen or pelvis. Echo: Normal size left ventricle. Normal left ventricular wall thickness. Normal left ventricular ejection fraction visually estimated at > 60%. Bioprosthetic aortic valve is present. # Demand ischemia Troponins and EKG were normal which R/O ACS, She was monitored on telemetery . she was kept on her home dose of Aspirin, lisinopril, statin and metoprolol. Echo was done which showed: Normal left ventricular ejection fraction visually estimated at > 60%. # Abdominal pain and diarrhea Most likely was due to gastroenteritis with elevated WBC on admission. She was treated with Tigan for nausea PRN in addition to Mild IV hydration with normal saline. Her I's and O's and daily weights were followed closely. Her symptoms improved during her hospital stay. #Hyporkalemia Was Likely due to diarrhea It was Repeated with oral potassium. Her BEP were monitored closely. Full code DVT prophylaxis: IV heparin and mechanical Heart healthy diet Allergies: Coded Allergies: Penicillins (UNKNOWN 10/12/16) clarithromycin (From BIAXIN) (HIVES 10/12/16) Disposition Summary Disposition Principal Diagnosis: Gastroentritis Additional Diagnosis: -Demand ischemia -Hypokalemia Discharge Disposition: home or self care Discharge Instructions General Discharge Information Code Status: Full Code Patient's Diet: heart healthy Patient's Activity: As tolerated Follow-Up Instructions/Appts: 1. please f/u with your PCP within 1 week of discharge. 2. please f/u with your separator operator within 1 week of discharge. Medications at Discharge Discharge Medications: Continue taking these medications: Aspirin (Ecotrin*) 81 MG TABLET. 1 Tablet ORAL DAILY Comments: Last Taken: 10/14/16 Time: 9:40 AM Paroxetine HCl (Paxil) 30 MG TABLET 1 Tablet ORAL DAILY Qty = 90 Comments: Last Taken: 10/13/16 Time: 10:00 PM Potassium Chloride (Potassium Chloride) 10 MEQ TAB.ER.PRT 1 Tablet ORAL TWICE DAILY Qty = 30 Comments: Last Taken: 10/14/16 Time: 9:40 AM 60 MG GIVEN AT THIS TIME Pravastatin Sodium (Pravachol) 40 MG TABLET 1 Tablet ORAL DAILY Comments: Last Taken: 10/13/16 Time: 10:00 PM Lisinopril (Lisinopril) 20 MG TABLET 1 Tablet ORAL DAILY Comments: Last Taken: 10/13/16 Time: 10:00 PM Copies To: JILLIAN CHANDLER APRN
--- NOTE | 2016-10-13 21:24 | ECHOCARDIOGRAM REPORT ---
FRANSISCO ROBLES Age: 66 : 1950 Gender: F Exam Date: 10/13/2016 08:18 Exam Location: 1 [address] Ht (in): 62 Wt (lb): 215 BSA: 2.12 BP: 118 / 72 Ordering Physician: REGLA HAYDEN MD Referring Physician: REGLA HAYDEN MD Technologist: Jose Luis Forte [facility] Room Number: 182-1 Indications: MYOCARDIAL ISCHEMIA/KS Rhythm: Sinus Technical Quality: Technically difficult study FINDINGS Left Ventricle Normal size left ventricle. Normal left ventricular wall thickness. Normal left ventricular ejection fraction visually estimated at > 60%. Normal left ventricular wall motion. Right Ventricle Normal right ventricular size and function. Right Atrium Normal right atrial size. Left Atrium Normal left atrial size. Mitral Valve Mild mitral annular calcification. Mitral valve thickened. Aortic Valve Bioprosthetic aortic valve is present. Peak gradient 33 mmHg. Mean gradient 18 mmHg. Tricuspid Valve Tricuspid valve not well visualized, grossly normal. Trace tricuspid regurgitation. Pulmonic Valve Pulmonic valve not well visualized, grossly normal. Trace pulmonic regurgitation. Pericardium No pericardial effusion. Great Vessels Normal size aortic root. CONCLUSIONS Normal size left ventricle. Normal left ventricular wall thickness. Normal left ventricular ejection fraction visually estimated at > 60%. Bioprosthetic aortic valve is present. Peak gradient 33 mmHg. Mean gradient 18 mmHg. Arnaldo German M.D. (Electronically Signed) Final Date: 13 October 2016 21:23 MEASUREMENTS (Male / Female) Normal Values 2D ECHO LV Diastolic Diameter PLAX 5.3 cm 4.2 - 5.9 / 3.9 - 5.3 cm LV Systolic Diameter PLAX 3.0 cm 2.1 - 4.0 cm LV Fractional Shortening PLAX 43.4 % 25 - 46 % LV Ejection Fraction 2D Teich 74.1 % IVS Diastolic Thickness 1.0 cm LVPW Diastolic Thickness 1.0 cm LV Relative Wall Thickness 0.4 RV Internal Dim ED PLAX 2.7 cm 1.9 - 3.8 cm LVOT Diameter 1.7 cm Aortic Root Diameter 2.7 cm LA Systolic Diameter LX 3.8 cm 3.0 - 4.0 / 2.7 - 3.8 cm LA Volume 46.0 cm 18 - 58 / 22 - 52 cm Ascending Aorta Diameter 3.1 cm DOPPLER AV Peak Velocity 290.0 cm/s AV Peak Gradient 33.6 mmHg AV Mean Velocity 193.0 cm/s AV Mean Gradient 18.0 mmHg AV Velocity Time Integral 54.2 cm LVOT Peak Velocity 197.0 cm/s LVOT Peak Gradient 15.5 mmHg LVOT Mean Velocity 120.0 cm/s LVOT Mean Gradient 7.0 mmHg LVOT Velocity Time Integral 39.1 cm LVOT Stroke Volume 88.7 cm AV Area Cont Eq vti 1.6 cm AV Area Cont Eq pk 1.5 cm MV Peak Velocity 174.0 cm/s MV Peak Gradient 12.1 mmHg MV Mean Velocity 99.6 cm/s MV Mean Gradient 5.0 mmHg Mitral E Point Velocity 142.0 cm/s MV PHT Velocity 176.0 cm/s MV Deceleration Summit 1282.0 cm/s MV Pressure Half Time 41.2 ms MV Area PHT 5.3 cm MV Deceleration Time 148.0 ms PV Peak Velocity 123.0 cm/s PV Peak Gradient 6.1 mmHg PV Mean Velocity 78.2 cm/s PV Mean Gradient 3.0 mmHg PV Velocity Time Integral 21.7 cm LV E' Lateral Velocity 7.9 cm/s Mitral E to LV E' Lateral Ratio 18.0
[2016-10-13 21:57] VITALS: BP 118/62
[2016-10-14 07:23] VITALS: BP 124/80
--- NOTE | 2016-10-14 08:47 | PN- Housestaff ---
Subjective Follow-up For: Nausea and vomiting Abdominal pain Elevated troponin Subjective: Patient has no complaints. No acute events overnight Review of Systems Constitutional: Reports: see HPI. Objective Last 24 Hrs of Vital Signs/I&O Vital Signs Date Time Temp Pulse Resp B/P B/P Pulse O2 O2 Flow FiO2 Mean Ox Delivery Rate 10/14 722 99.1 78 20 124/80 98 Room Air 10/13 2158 87 118/62 10/13 2157 98.6 87 18 118/62 96 Room Air Intake & Output 10/14 1600 10/14 0800 10/14 0000 Intake Total Output Total Balance Intake, Oral Output, Urine Physical Exam General Appearance: Alert, Oriented X3, Cooperative, No Acute Distress HEENT: Atraumatic, PERRLA Neck: Supple, No JVD, No thryomegaly Cardiovascular: Regular Rate, Normal S1, Normal S2 Lungs: Clear to Auscultation, Normal Air Movement Abdomen: Normal Bowel Sounds, Soft, No Tenderness Extremities: No Cyanosis, No Edema Current Medications: Current Medications Sig/Kelly Start time Last Medication Dose Route Stop Time Status Admin Acetaminophen 650 MG Q6P PRN 10/12 2330 DCD PO Aspirin Buffered 81 MG DAILY 10/13 1000 DCD 10/14 PO 0940 Lisinopril 20 MG QPM 10/13 0030 DCD 10/13 PO 2158 Paroxetine HCl 30 MG QPM 10/13 0030 DCD 10/13 PO 2157 Potassium Chloride 60 MEQ ONCE ONE 10/14 0945 DC 10/14 PO 10/14 0946 0940 Potassium Chloride 80 MEQ ONCE ONE 10/14 0845 CAN PO 10/14 0846 Potassium Chloride 40 MEQ ONCE ONE 10/13 2100 DC 10/13 PO 10/13 2101 2155 Potassium Chloride 40 MEQ ONCE ONE 10/13 1745 DC 10/13 PO 10/13 1746 1815 Potassium Chloride 40 MEQ ONCE ONE 10/13 1745 CAN PO 10/13 1746 Potassium Chloride 10 MEQ QPM 10/13 0030 DC 10/13 PO 0036 Pravastatin Sodium 40 MG QPM 10/13 0030 DCD 10/13 PO 2157 Trimethobenzamide HCl 200 MG 4 TIMES/DAY PRN 10/12 2345 DCD IM Last 24 Hrs of Lab/Parveen Results Last 24 Hrs of Labs/Mics: Laboratory Tests 10/14/16 0623: Anion Gap 9, Estimated GFR > 60, BUN/Creatinine Ratio 21.3 Assessment/Plan Assessment: 66-year-old female was PMH of aortic stenosis S\P valve replacement with bovine valve in 2016 (AT [facility]) HLD, HTN, hypokalemia presented to the ED complaining of sweating, lower abdominal pain, nausea and diarrhea.The patient also reported sweating, nausea and 1 episode of diarrhea after which she felt dizzy and came to the ED.She denies chest pain, Shortness of breath, constipation, fever, chills OR recent sick contacts On admission she received Zofran and an abscess, her first troponin was negative however the second one was 0.34 was no EKG changes Vital signs on admission were stable only showed mild tachycardia was no fever Labs on admission: WBC 17.6, hemoglobin 14, sodium 136, potassium is 3.1, chloride 99, BUN 19, creatinine 0.8, glucose 114, troponin (0.07, 0.34, 0.31) TSH 0.573, T4 10 0.2, total T3 1 0.71 -imaging CT abdomen:1. No aneurysm or dissection of aorta. There is atherosclerotic vascular calcifications of the aorta and major branch vessels of aorta. 2. Large left-sided substernal thyroid goiter. 3. Status post median sternotomy with aortic valve replacement. 4. No acute abnormality of the abdomen or pelvis. # Elevated troponin (possible NSTEMI) -Continue telemetry for cardiac monitoring Troponins and EKG were normal which R/O ACS Aspirin, lisinopril, statin and metoprolol. Echocardiogram was done today , report pending. Check lipid panel Cardiology consult appreciated # Abdominal pain and diarrhea Possibly due to gastroenteritis due to elevated WBC on admission WBC improved today Follow up on stool culture Tigan for nausea when necessary Mild IV hydration with normal saline I's and O's and daily weights #Hypokalemia Likely due to diarrhea Today 3.3, gave 60meq oral potassium Monitor BEP Full code DVT prophylaxis: IV heparin and mechanical Heart healthy diet Disposition-DC home today Problem List: 1. Elevated troponin 2. Hypokalemia 3. Nausea 4. Abdominal pain 5. NSTEMI (non-ST elevated myocardial infarction) 6. Diarrhea Pain Ratin Pain Location: N/A Pain Goal: Remain pain free Pain Plan: N/A Tomorrow's Labs & Rationales: CBC BEP
[2016-10-14] MEDS ORDERED: K-TAB ER20 MEQ PO (10:58)
--- NOTE | 2016-10-14 12:13 | PN- Cardiology ---
Subjective Subjective: No complaints and anxious for discharge. Denies any further abdominal discomfort. Also denies any chest discomfort, palpitations, shortness of breath, lower extremity edema, etc. Objective Vital Signs and I&Os Vital Signs Date Time Temp Pulse Resp B/P B/P Pulse O2 O2 Flow FiO2 Mean Ox Delivery Rate 10/14 07 99.1 78 20 124/80 98 Room Air 10/13 2158 87 118/62 10/13 2157 98.6 87 18 118/62 96 Room Air 10/13 1504 99.4 93 20 108/60 96 Room Air Intake & Output 10/14 1600 10/14 0800 10/14 0000 10/13 1600 10/13 0800 10/13 0000 Intake Total 960 1000 Output Total 800 600 Balance -194 602 9573 Intake, IV 760 1000 Intake, Oral 200 Number 4 Bowel Movements Output, Urine 800 600 Patient 215 lb 215 lb Weight Weight Reported by Patient Measurement Method Physical Exam: Well-developed, overweight elderly female in no acute distress. Vital signs: See above. Neck: No JVD. Lungs: Clear to auscultation bilaterally. Heart: S1, S2 with grade 1-2/6 systolic murmur heard near the base. Abdomen: Soft, nontender, positive bowel sounds. Extremities: No edema. Assessment/Plan Assessment/Plan [id number] w/ hx obesity, HTN, HCM, s/p AVR (bioprosthetic) who presented w/ c/o diarrhea, nausea, and abdominal cramps felt secondary to gastroenteritis that has resolved. Hypokalemia was also observed and potassium was repleted, although still on the low side today. Further potassium supplementation is needed prior to discharge. She did have a modest troponin I elevation likely secondary to demand ischemia. The plan is for further outpatient evaluation and management by her delicatessen clerk , Baudilio German M.D. Continue telemetry? No
== END 2016-10-14 13:15 | DRG 392 ==
LOC: ERH 15:19 → ERHI 22:23 → 1NO 22:23 → ENRESERV 10-13 00:04 → 1NO 10-13 01:09 → ENPENDDIS 10-14 12:03 → 1NO 10-14 13:15
PROVIDERS: Internal Medicine; Physician Assistant; Student in an Organized Health Care Education/Training Program; ADMIT Internal Medicine Cardiovascular Disease
DX: K52.9 Noninfective gastroenteritis and colitis, unspecified (principal); I24.8 Other forms of acute ischemic heart disease; E87.6 Hypokalemia; R00.0 Tachycardia, unspecified; E66.9 Obesity, unspecified; Z68.39 Body mass index [BMI] 39.0-39.9, adult; Z95.2 Presence of prosthetic heart valve; E78.5 Hyperlipidemia, unspecified; I10 Essential (primary) hypertension; I70.0 Atherosclerosis of aorta; E04.8 Other specified nontoxic goiter; Z88.0 Allergy status to penicillin; Z88.1 Allergy status to other antibiotic agents; Z87.891 Personal history of nicotine dependence
CPT/HCPCS: 1NP; ERO; 36415; 74174; 82436; 87045; 93005; 93010; 93306; 96374; J1644; J2405

== ENCOUNTER 2017-07-10 19:41 | Emergency (ER) | payer OTHER, MEDICARE ==
[~2017-07-10 19:41] MED LIST: ASPIRIN EC81 M1 PO; K-TAB ER20 MEQ PO; LISINOPRIL10 M1 PO; LISINOPRIL20 M1 PO; PAXIL30 M1 PO; POTASSIUM CHLO10 ME5 PO; PRAVACHOL40 M1 PO
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
[2017-07-10 20:04] VITALS: BP 167/85
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
== END 2017-07-10 20:40 ==
LOC: ERH 19:41
DX: S00.03XA Contusion of scalp, initial encounter (principal); V49.40XA Driver injured in collision with unspecified motor vehicles in traffic accident, initial encounter; Y92.9 Unspecified place or not applicable